=== PATIENT | male | born 1975 | race Caucasian/White ===

== ENCOUNTER 2017-03-12 09:44 | Outpatient (CLI) | payer OTHER ==
--- NOTE | 2017-03-12 10:50 | Ultrasound Report ---
Sonogram right upper quadrant: History: Gallbladder disease. Findings: Aortic diameter 1.7 cm. Normal liver. No intrahepatic or extrahepatic duct dilatation. Common bile duct diameter 3.5 mm. Gallbladder thickness 3.9 mm. No calculi in the gallbladder. Suspect it very tiny polyp in the gallbladder. Right kidney measures 11 x 5.7 x 5.1 cm. Cortical thickness 1.4 cm. Pancreas obscured by bowel gas. Impression: Suspected very tiny polyp in the gallbladder.
== END 2017-03-12 09:45 | disposition home or self-care (01) ==
LOC: US 09:44
PROVIDERS: ATTEND General Practice
DX: K82.9 Disease of gallbladder, unspecified (principal); F17.200 Nicotine dependence, unspecified, uncomplicated
CPT/HCPCS: 76705

== ENCOUNTER 2017-04-06 07:56 | Outpatient (CLI) | payer OTHER ==
[2017-04-06] MEDS ORDERED: KINEVAC IV ONE ×2 (09:01→09:03)
[2017-04-06] MEDS ORDERED: WATER FOR INJ (PF) IV ONE (09:01)
[2017-04-06] MEDS ORDERED: WATER FOR INJ (PF) 10 ML ONE (09:03)
--- NOTE | 2017-04-06 10:32 | Nuclear Medicine Report ---
Hepatobiliary scan with CCK: Right upper quadrant pain. Following injection radionuclide anterior imaging of the liver is unremarkable. There is prompt visualization of the biliary duct and small bowel as well as the gallbladder. Kinevac was administered at one hour demonstrating a peak ejection fraction of 21% at 7 minutes. Impression: Normal biliary imaging with 21% ejection fraction.
== END 2017-04-06 07:57 | disposition home or self-care (01) ==
LOC: NM 07:56
PROVIDERS: ATTEND Surgery
DX: K82.4 Cholesterolosis of gallbladder (principal); R10.11 Right upper quadrant pain
CPT/HCPCS: 78227; A9537; J2805

== ENCOUNTER 2017-04-09 10:07 | Day surgery (SDC) | payer OTHER ==
[2017-04-09] MEDS ORDERED: DIPRIVAN 10 MG/ML IV ONE (10:42)
[2017-04-09] MEDS ORDERED: NACL BACTERIOSTATIC INFILTRATI ONE (10:43)
[2017-04-09] MEDS ORDERED: SUBLIMAZE ONE (10:43)
--- NOTE | 2017-04-09 10:44 | Anesthesia Consultation ---
Anesthesia Consult and Med Hx Date of service: 04/09/17 - Airway Anesthetic Teeth Evaluation: Good ROM Head & Neck: Adequate Mental/Hyoid Distance: Adequate Mallampati Class: Class III Intubation Access Assessment: Probably Good - Pulmonary Exam CTA: Yes - Cardiac Exam Cardiac Exam: RRR - Pre-Operative Health Status ASA Pre-Surgery Classification: ASA2 Proposed Anesthetic Plan: General - Pulmonary Hx Smoking: Yes (Remote) - Central Nervous System Hx Psychiatric Problems: No - Other Systems Hx Alcohol Use: Yes (occas) Hx Cancer: No - Additional Comments Anesthesia Medical History Comments: Otherwise healthy. Chipped upper left tooth, not loose. NAC previously.
--- NOTE | 2017-04-09 10:44 | Anesthesia Day of Surgery ---
Anesthesia Day of Surgery - Day of Surgery Patient Examined: Yes Patient H&P Reviewed: Yes Patient is NPO: Yes
[2017-04-09] MEDS ORDERED: VERSED IV PRN (10:45)
[2017-04-09] MEDS ORDERED: ZEMURON IV ONE (10:47)
[2017-04-09] MEDS ORDERED: MARCAINE 0.5% 30 ML INFILTRATI ONE (10:57)
[2017-04-09] MEDS ORDERED: NACL 0.9% 1000 ML 1,000 ML IV SCH (11:00)
[2017-04-09] MEDS ORDERED: PEPCID IV NR (11:00)
[2017-04-09] MEDS ORDERED: ANCEF/STERILE WATER 2 GM/20 ML IV NR (11:19)
[2017-04-09 11:31] LABS: Hematocrit 47.3 % (35.5-45.6); Hemoglobin 16.1 gm/dl (11.8-15.2); Mean Corpuscular HGB Conc 34 % (32-34); Mean Corpuscular Hemoglobin 31 pg (28-32); Mean Corpuscular Volume 92 fl (84-94); Platelet Count 203 K/mm3 (140-440); Red Blood Count 5.13 M/mm3 (3.65-5.03); Red Cell Distribution Width 13.5 % (13.2-15.2); White Blood Count 8.1 K/mm3 (4.5-11.0)
[2017-04-09 11:55] LABS: Anion Gap 22 mmol/L; BUN/Creatinine Ratio 18.75; Blood Urea Nitrogen 15 mg/dL (9-20); Carbon Dioxide 22 mmol/L (22-30); Chloride 99.2 mmol/L (98-107); Glucose 96 mg/dL (75-100); Sodium 137 mmol/L (137-145)
[2017-04-09 11:59] LABS: Alanine Aminotransferase 35 units/L (7-56); Albumin 4.6 g/dL (3.9-5); Albumin/Globulin Ratio 1.4 %; Alkaline Phosphatase 113 units/L (35-129); Bilirubin,Direct < 0.2 mg/dL (0-0.2); Bilirubin,Indirect 0.7 mg/dL; Total Protein 7.9 g/dL (6.3-8.2)
[2017-04-09 12:13] LABS: Potassium 5.7 mmol/L (3.6-5.0)
[2017-04-09] MEDS ORDERED: NACL 0.9% IR ONE ×2 (12:24→12:44)
[2017-04-09] MEDS ORDERED: MARCAINE 0.5% INFILTRATI ONE (12:24)
[2017-04-09] MEDS ORDERED: DILAUDID ONE (12:41)
[2017-04-09] MEDS ORDERED: ROBINUL ONE (12:59)
[2017-04-09] MEDS ORDERED: ZOFRAN ONE (12:59)
[2017-04-09] MEDS ORDERED: NEOSTIGMINE ONE (12:59)
[2017-04-09] MEDS ORDERED: TORADOL ONE (12:59)
--- NOTE | 2017-04-09 13:13 | Discharge Summary ---
Short Stay Discharge Plan Activity: advance as tolerated Diet: low fat Wound: per your surgeon's advice Follow up with: ALEE TANNER MD [Primary Care Provider] - 7 Days Prescriptions: HYDROcodone/APAP 7.5-325 [[place] 7.5/325] 1 each PO Q6HR PRN #20 tablet PRN Reason: Pain
[2017-04-09] MEDS: DILAUDID IV PRN ×4 (13:20→14:15)
[2017-04-09 15:48] VITALS: BP 108/57
--- NOTE | 2017-04-09 17:43 | Operative Report ---
PREOPERATIVE DIAGNOSIS: Gallbladder disease with acalculous cholecystitis with a very low ejection fraction. POSTOPERATIVE DIAGNOSIS: Gallbladder disease with acalculous cholecystitis with a very low ejection fraction. SURGERY: Laparoscopic cholecystectomy. ANESTHESIA: General. BLOOD LOSS: Minimal. FINDINGS: The patient had a very long gallbladder that is tilted on itself in an acute angle. Lots of adhesions there. I could not see any stones. The gallbladder wall was edematous. ANESTHESIA: General. BLOOD LOSS: Minimal. FINDINGS: As above with lots of adhesions. DESCRIPTION OF PROCEDURE: With the patient in supine position, prepped and draped in usual fashion. I made a small incision in the right upper abdomen under local anesthesia. With the Veress needle, I was able to introduce CO2 up to a pressure of 15 for which #5 trocar inserted. Once I was there, I was able to see the intraabdominal cavity. The gallbladder was stuck to multiple adhesions, so we put another #5 trocar in the right midabdomen and another #5 in the infraumbilical aspect, #10 in the mid upper epigastrium under local anesthesia. So the gallbladder was held from its fundus and slowly dissecting all the adhesions all the way down to the infundibulum, at which point I was able to isolate the cystic duct. We took a picture of that and Endo clipped x 4, transected and sent to the cystic artery. Then, the gallbladder was removed in toto using caudal cautery, making sure not to injure abdominal structure of that area. The gallbladder was removed in toto in the usual fashion. We took picture of that area. After irrigating it thoroughly with sterile normal saline. Then, the trocars were removed one by one ascertaining good hemostasis, closing the fascia with the use of 0 Vicryl [id number] x 2 and the skin with 4-0 Vicryl and bandage. The patient was then transferred to the recovery room in good condition. I totally examination him and I left a prescription for Affymax. To see in my office in about 10 days. To call me if he has any problems otherwise. JOB# [id number] BRAIN/ERIKA
--- NOTE | 2017-04-10 00:11 | Discharge Summary ---
FINAL DIAGNOSIS: Gallbladder disease with acalculous cholecystitis. HOSPITAL COURSE: This man came to my office last week with pain in the right upper quadrant with severe nausea and vomiting. He was found to have a thickened wall of the gallbladder with the edema. HIDA scan showed a 4% ejection fraction. So, he was brought today for definitive surgical intervention where he underwent laparoscopic cholecystectomy and he was transferred to the recovery room. We have planned to have him go home today. I gave him prescription for [place] ____. See in my office in one week. No pushing, no driving. Low-fat diet. JOB# [id number] BRAIN/NTS
== END 2017-04-09 16:14 | disposition home or self-care (01) ==
LOC: OR 10:07
PROVIDERS: ATTEND Surgery
DX: K80.10 Calculus of gallbladder with chronic cholecystitis without obstruction (principal); Z87.891 Personal history of nicotine dependence; K66.0 Peritoneal adhesions (postprocedural) (postinfection)
CPT/HCPCS: 36415; 47562; 80048; 80074; 85027; 88304; A4217; J0690; J1170; J1885; J2250; J2405; J2704; J2710; J3010; J7030